=== PATIENT | male | born 1980 | race Hispanic/Latino ===

== ENCOUNTER 2019-03-06 19:08 | Emergency (ER) | payer BC ==
[~2019-03-06] VITALS: Ht 167.6 cm; Wt 81.6 kg
[2019-03-06] MEDS ORDERED: IBUPROFEN 200 MG TAB PO STA (19:44)
[2019-03-06] MEDS ORDERED: IBUPROFEN 600 MG TAB PO STA (19:44)
[2019-03-06] MEDS ORDERED: CEFTRIAXONE SOD 1 GM VIAL IM ONE (19:45)
[2019-03-06] MEDS ORDERED: TETANUS/DIPHTHERIA TOX ADULT 0.5 ML SYR IM ONE (19:45)
[2019-03-06] MEDS ORDERED: HYDROCODONE/APAP 10MG-325MG TAB PO ONE (19:45)
[2019-03-06 22:33] VITALS: BP 130/96
== END 2019-03-06 22:35 | disposition home or self-care (01) ==
LOC: ER 19:08
DX: L03.115 Cellulitis of right lower limb (principal); R50.9 Fever, unspecified
CPT/HCPCS: 90471; 90714; 96372; 99283; J0696